=== PATIENT | female | born 1995 | race Caucasian/White ===

== ENCOUNTER 2021-06-01 05:15 | Inpatient (IN) | payer BC ==
[2021-06-01] MEDS ORDERED: Scopolamine 1.5 MG Transdermal Patch TOP SCH (06:00)
[2021-06-01] MEDS ORDERED: Celecoxib 200 MG Cap PO ONE (06:00)
[2021-06-01] MEDS ORDERED: Acetaminophen 500 MG Tab PO ONE (06:00)
[2021-06-01] MEDS ORDERED: cefOXitin 2 GM Vial ONE (06:45)
[2021-06-01] MEDS ORDERED: Dextrose 5%-Lactated Ringers 1,000 ML IV SCH (07:00)
[2021-06-01] MEDS ORDERED: Ondansetron 4 MG/2 ML SDV ONE (07:08)
[2021-06-01] MEDS ORDERED: Succinylcholine 200 MG/10 ML MDV ONE (07:08)
[2021-06-01] MEDS ORDERED: fentaNYL 250 MCG/5 ML SDV ONE ×2 (07:08→07:55)
[2021-06-01] MEDS ORDERED: Neostigmine Methylsulfate 1 MG/ML 5 ML Syringe ONE (07:08)
[2021-06-01] MEDS ORDERED: Propofol 200 MG/20 ML SDV ONE (07:08)
[2021-06-01] MEDS ORDERED: Dexamethasone 4 MG/ML SDV ONE (07:08)
[2021-06-01] MEDS ORDERED: Rocuronium 50 MG/5 ML Vial ONE (07:08)
[2021-06-01] MEDS ORDERED: Glycopyrrolate 0.2 MG/ML 5 ML MDV ONE (07:08)
[2021-06-01] MEDS ORDERED: Lactated Ringers 0 ML ONE (07:12)
[2021-06-01] MEDS ORDERED: cefOXitin 2 GM in Sodium Chloride 0.9% 50 ML IV ONE (07:15)
[2021-06-01] MEDS ORDERED: Ketamine 17 MG in Sodium Chloride 0.9% 19.83 ML IV SCH (07:30)
[2021-06-01] MEDS ORDERED: Ketamine 500 MG/5 ML MDV IV SCH (07:30)
[2021-06-01] MEDS ORDERED: Magnesium Sulfate 3.8 GM in Sodium Chloride 0.9% 100 ML IV SCH (07:30)
[2021-06-01] MEDS ORDERED: Magnesium Sulfate 3.8 GM in Sodium Chloride 0.9% 250 ML IV ONE (07:30)
[2021-06-01] MEDS ORDERED: hydrOXYzine HCL 100 MG/2 ML SDV IM ONE (09:26)
[2021-06-01] MEDS ORDERED: fentaNYL 100 MCG/2 ML SDV IVPUSH ONE (09:38)
[2021-06-01] MEDS ORDERED: Lactated Ringers 1,000 ML ONE (09:52)
[2021-06-01] MEDS ORDERED: Cetirizine 10 MG Tab PO PRN (10:46)
[2021-06-01] MEDS ORDERED: Metoclopramide 10 MG/2 ML SDV IVPUSH PRN (12:00)
[2021-06-01] MEDS ORDERED: Ondansetron 4 MG/2 ML SDV IVPUSH PRN (12:00)
[2021-06-01] MEDS ORDERED: Calcium Gluconate 10% 1 GM/10 ML SDV IVPUSH PRN (12:00)
[2021-06-01] MEDS ORDERED: diphenhydrAMINE 50 MG/ML SDV IVPUSH PRN (12:00)
[2021-06-01] MEDS ORDERED: HYDROmorphone 1 MG/ML Syringe IV PRN (12:00)
[2021-06-01] MEDS ORDERED: Labetalol 20 MG/4 ML Syringe IVPUSH PRN (12:00)
[2021-06-01] MEDS ORDERED: oxyCODONE 5 MG Tab PO PRN (12:00)
[2021-06-01] MEDS ORDERED: HYDROmorphone 0.5 MG/0.5 ML Syringe IVPUSH PRN (12:00)
[2021-06-01] MEDS ORDERED: Acetaminophen 500 MG Tab PO PRN (12:00)
[2021-06-01] MEDS: hydrOXYzine HCL 100 MG/2 ML SDV IM PRN ×2 (12:34→19:56)
[2021-06-01] MEDS: Dextrose 5%-Lactated Ringers 1,000 ML IV SCH ×2 (13:08→23:12)
[2021-06-01] MEDS ORDERED: Pantoprazole 40 MG Vial IVPUSH SCH (14:00)
--- NOTE | 2021-06-01 14:39 | PCM.EKG ---
#1 Interpretation EKG Date: 06/01/21 Time: 07:07 Rhythm: NSR Rate (Beats/Min): 90 [place]: Normal P-Wave: Present QRS: Normal ST-T: Normal QT: Normal CA/PQ Interval: normal Comparison: NA - No Prior EKG
[2021-06-01] MEDS: cefOXitin 2 GM in Sodium Chloride 0.9% 50 ML IV SCH ×2 (15:06→19:58)
[2021-06-01] MEDS: Acetaminophen 500 MG Tab PO SCH ×2 (15:09→22:03)
[2021-06-01] MEDS: busPIRone 5 MG Tab PO SCH ×2 (15:09→21:53)
[2021-06-01] MEDS ORDERED: MVI, Adult with Vitamin K 10 ML, Thiamine 200 MG, Zinc/Copper/Manganese/Selenium 1 ML i... IV SCH ×4 (16:00)
[2021-06-01] MEDS: Heparin Sodium 5,000 Units/ML Vial SUBCUT SCH (17:10)
[2021-06-01] MEDS: Cyclobenzaprine 10 MG Tab PO PRN (18:55)
[2021-06-01] MEDS: lamoTRIgine 100 MG Tab PO SCH (21:53)
[2021-06-01] MEDS: Propranolol 40 MG Tab PO SCH (21:53)
[2021-06-01] MEDS: Oxybutynin 5 MG Tab PO SCH (21:53)
[2021-06-01] MEDS: OLANZapine 5 MG Tab PO SCH (21:53)
[2021-06-01] MEDS: Divalproex Sodium Delayed-Release 250 MG Tab.CR PO SCH (21:53)
[2021-06-01] MEDS: Mirtazapine 15 MG Tab PO SCH (21:53)
[2021-06-01] MEDS: traMADol 50 MG Tab PO PRN (22:04)
[2021-06-02] MEDS: cefOXitin 2 GM in Sodium Chloride 0.9% 50 ML IV SCH ×3 (02:44→14:38)
[2021-06-02] MEDS ORDERED: Iopamidol 612 MG/ML 50 ML SDV PO STA (02:48)
[2021-06-02] MEDS: Cyclobenzaprine 10 MG Tab PO PRN (03:23)
[2021-06-02] MEDS: Dextrose 5%-Lactated Ringers 1,000 ML IV SCH ×2 (05:29→12:17)
[2021-06-02] MEDS: Acetaminophen 500 MG Tab PO SCH ×3 (05:57→22:04)
[2021-06-02] MEDS: Heparin Sodium 5,000 Units/ML Vial SUBCUT SCH ×2 (05:58→18:49)
[2021-06-02] MEDS ORDERED: hydrOXYzine HCl 25 MG Tab PO PRN (07:47)
--- NOTE | 2021-06-02 08:52 | PN ---
DATE OF SERVICE: 06/02/2021 SUBJECTIVE: Luli is postop day #1. Her upper GI was normal. She had 420 mL and output was 1400. FRACISCO drain is 250 mL of light red drainage. Upper GI this morning was normal. She has no questions or concerns. OBJECTIVE: GENERAL: Luli is a pleasant 26-year-old female. She is alert and orientated. VITAL SIGNS: TPR 97.7, 80, and 16. Blood pressure 112/66. HEENT: Negative. NECK: Supple. HEART: Regular rate and rhythm. LUNGS: Clear. ABDOMEN: Dressings dry and intact. FRACISCO drain intact. EXTREMITIES: Without peripheral edema. ASSESSMENT: Diagnostic laparoscopy with: 1. Laparoscopic gastric bypass surgery. 2. Liver biopsy. 3. Repair of diaphragmatic hernia. 4. Partial gastrectomy. POSTOPERATIVE DIAGNOSES: 1. Morbid obesity. 2. Periesophageal diaphragmatic hernia. 3. Hepatomegaly. 4. Overstitch part of devascularization requiring partial pouch resection. Date of procedure: 06/01/2021. Surgeon: Isacc Smith MD. PLAN: 1. Decrease IV to 100 mL per hour. 2. Step 2 gastric bypass diet without cereal. 3. Discontinue continuous pulse ox and wiener packer. 4. Zofran ODT 4 mg q.4 hours p.r.n. nausea sublingual on step 2 gastric bypass diet without cereal. Communication order written to drink 1 med cup every 20 minutes or 3 per hour, record at bedside. 5. Continue ambulation and use of incentive spirometer. 6. We will evaluate p.r.n. or in a.m. Argenis Griffin PA-C /[id number]
--- NOTE | 2021-06-02 09:38 | CR ---
[facility] HISTORY: Postbariatric surgery FINDINGS: Patient swallowed water-soluble contrast. Upright views of the abdomen show no evidence of extravasation or obstruction. There is a surgical drain in the left upper quadrant. IMPRESSION: Status post bariatric surgery No extravasation or obstruction seen
[2021-06-02] MEDS: hydrOXYzine HCL 100 MG/2 ML SDV IM PRN ×2 (10:14→16:28)
[2021-06-02] MEDS: busPIRone 5 MG Tab PO SCH ×3 (10:22→22:00)
[2021-06-02] MEDS: Oxybutynin 5 MG Tab PO SCH ×3 (10:23→21:59)
[2021-06-02] MEDS: Spironolactone 25 MG Tab PO SCH (10:23)
[2021-06-02] MEDS: Propranolol 40 MG Tab PO SCH ×2 (10:24→21:59)
[2021-06-02] MEDS: ClonazePAM 1 MG Tab PO PRN ×2 (10:31→21:59)
[2021-06-02] MEDS: SCOPOLAMINE PATCH CHECK TOP SCH (10:33)
[2021-06-02] MEDS: Celecoxib 200 MG Cap PO SCH ×2 (10:33→21:58)
[2021-06-02] MEDS: traMADol 50 MG Tab PO PRN ×2 (12:13→21:57)
--- NOTE | 2021-06-02 13:13 | OR ---
DATE OF PROCEDURE: 06/01/2021 SURGEON: Isacc Smith MD PREOPERATIVE DIAGNOSIS: Morbid obesity. POSTOPERATIVE DIAGNOSES: 1. Morbid obesity. 2. Marked hepatomegaly. 3. Paraesophageal diaphragmatic hernia. 4. Area of gastric pouch devascularized requiring partial pouch resection. OPERATIVE PROCEDURES: Diagnostic laparoscopy with: 1. Laparoscopic removal Lisette-en-Y gastric bypass with long limb gastroenterostomy (82635). 2. Bill-Cut needle liver biopsy (78709). 3. Repair of paraesophageal diaphragmatic hernia (84975). 4. Partial gastrectomy (49701). ANESTHESIA: General. HELICOPTER SPECIALIST: Argenis Griffin PA-C. INDICATIONS FOR PROCEDURE: This is a 26-year-old female presenting with longstanding morbid obesity and increasingly significant comorbidities. After preoperative evaluation and discussion, she wished to proceed with a gastric bypass procedure. Potential risks including bleeding, infection, leaks from various GI tract closures, problems with bowel obstruction over time, as well as possibility of cardiopulmonary, septic, or hemorrhagic complications leading to were discussed, and the patient wishes to proceed. DESCRIPTION OF PROCEDURE: The patient was taken to the operating room and after general endotracheal anesthesia was induced, she was placed in a lithotomy position and the abdomen was prepped and draped 15 cm inferior and 5 cm left of the xiphoid process. A transverse incision was made and peritoneal cavity entered under direct vision with an Optiview trocar, inflated to 15 mmHg pressure with CO2. Laparoscopy was then reinserted. No underlying trocar insertion site injuries were seen. Following this, 5 additional trocars were placed across the upper and mid abdomen and bilateral transverse abdominis plane blocks were placed. The liver was noted to be markedly fatty infiltrated and enlarged roughly 2-3 times of normal size. Bill-Cut needle biopsy was obtained from left lobe of liver. Minimal bleeding from biopsy sites was controlled with electrocautery. At this point, the omentum was divided midline at the level of the transverse colon. This allowed identification of small bowel at the ligament of Treitz. Small bowel was then traced out 125 cm distal to that point, was divided transversely with a EMELY stapler. Small bowel was then traced out an additional 150 cm, where the [id number] enteroenterostomy was accomplished with internal firing of Endo-EMELY 60 mm stapler. The common opening was then closed transversely with the same stapler. Angles of anastomosis and mesenteric defect approximated with some 0 Ethibond stitch along with 4 mL of fibrin sealant. The divided end of Lisette limb was then from the mesentery for a few centimeters, which allowed an antecolic position of the Lisette limb up to the level of the gastroesophageal junction without tension. The liver was then retracted anteriorly. The patient was noted to have moderate-sized paraesophageal diaphragmatic hernia, contained some perigastric fat along with some gastric fundus and a tongue of omentum. The hernia was reduced at this point and the peritoneum overlying incised and reflected downward and an anterior repair of the diaphragmatic hernia was accomplished with 0 Ethibond sutures reinforced with PTFE pledgets. At this point, the gastrointestinal catheter inflated to 15 cc and pulled up snugly against the EG junction. Gastric wall over the apex balloon was then marked with electrocautery, and the balloon catheter deflated and pulled up into the esophagus. The lesser omental tissue adjacent to the gastric cardia was then incised allowing dissection behind the stomach at that level. Pouch formation was initiated with transverse firing of the EMELY stapler along with 2 additional firings of GI stapler up to and through the angle of His were then undertaken. At that point, the patient was noted to have some upper and left lateral aspect of the gastric pouch which were ischemic and the pouch was then repaired with additional partial gastrectomy, and the remaining staple line and gastric pouch at the point appeared to be well vascularized with good intact staple line. The anvil of a 25 mm EEA stapler was then attached to a [place] sump type tube and brought down through the mouth and taken out through a small opening in the gastric pouch, allowing the anvil likewise to be pulled down to within the gastric pouch. The divided end of Lisette limb was then opened and the main body of the EEA stapler passed several centimeters into the lumen of small bowel, brought up the anvil, united with it, thus creating the gastrojejunostomy. Upon removal of the stapler, double donuts of the mucosa were noted within it. Small bowel was closed off with a vascular staple line. Gastrojejunostomy was reinforced with some 3-0 Vicryl seromuscular stitch along with fibrin sealant. Leak test was accomplished with injection of 120 mL of air in the gastric pouch while it was submerged with cefoxitin-containing saline solution. No leaks were identified. A single Oniel- Miller drain was taken out through the left lateral trocar site and placed adjacent to the gastrojejunostomy, from there up into the splenic fossa. Trocars were then removed and peritoneal cavity deflated. Incisions were closed with 4-0 Vicryl skin stitch and drain affixed with 4-0 Vicryl stitch as well. The patient was taken to the recovery room in satisfactory condition. Physician automotive parts counter assistant, Argenis Griffin, played an essential role in assisting in this case, helping to position the patient, and retract structures as needed as well as suturing, cutting sutures when indicated. Her presence improved patient's safety and decreased operative time. Isacc Smith MD Job #: [id number]
[2021-06-02] MEDS ORDERED: MVI, Adult with Vitamin K 10 ML, Thiamine 200 MG, Zinc/Copper/Manganese/Selenium 1 ML i... IV SCH ×4 (16:00)
[2021-06-02] MEDS ORDERED: Pantoprazole 40 MG Delayed-Release Granules 1 Packet PO SCH (16:30)
[2021-06-02] MEDS: Mirtazapine 15 MG Tab PO SCH (21:58)
[2021-06-02] MEDS: lamoTRIgine 100 MG Tab PO SCH (21:59)
[2021-06-02] MEDS: OLANZapine 5 MG Tab PO SCH (21:59)
[2021-06-02] MEDS: Divalproex Sodium Delayed-Release 250 MG Tab.CR PO SCH (22:01)
[2021-06-02] MEDS: Ondansetron 4 MG Tab.DIS PO PRN (22:32)
[2021-06-03] MEDS: Dextrose 5%-Lactated Ringers 1,000 ML IV SCH (01:24)
[2021-06-03] MEDS: Acetaminophen 500 MG Tab PO SCH (05:29)
[2021-06-03] MEDS: Heparin Sodium 5,000 Units/ML Vial SUBCUT SCH (06:56)
[2021-06-03] MEDS: hydrOXYzine HCL 100 MG/2 ML SDV IM PRN (08:53)
[2021-06-03] MEDS ORDERED: Cyanocobalamin (Vitamin B12) 1,000 MCG/ML SDV IM ONE (09:00)
[2021-06-03] MEDS ORDERED: Magnesium Hydroxide 400 MG/5 ML Susp 30 ML Cup PO PRN (09:05)
[2021-06-03] MEDS: Propranolol 40 MG Tab PO SCH (09:19)
[2021-06-03] MEDS: Oxybutynin 5 MG Tab PO SCH (09:19)
[2021-06-03] MEDS: Spironolactone 25 MG Tab PO SCH (09:19)
[2021-06-03] MEDS: Celecoxib 200 MG Cap PO SCH (09:19)
[2021-06-03] MEDS: busPIRone 5 MG Tab PO SCH (09:19)
[2021-06-03] MEDS: SCOPOLAMINE PATCH CHECK TOP SCH (09:20)
[2021-06-03] MEDS: Ondansetron 4 MG Tab.DIS PO PRN (09:32)
--- NOTE | 2021-06-04 08:16 | DISCH ---
FINAL DIAGNOSES: 1. Morbid obesity. 2. Marked hepatomegaly. 3. Paraesophageal diaphragmatic hernia. 4. Area of stomach pouch devascularized status post pouch formation, requiring additional resection. ADDITIONAL DIAGNOSES: 1. Allergic rhinitis. 2. Anxiety. 3. Bipolar II disorder. 4. Irritable bowel syndrome. 5. Major depression, in partial remission. 6. Weightbearing joint pain. OPERATIVE PROCEDURES: Done on 06/01, diagnostic laparoscopy with: 1. Laparoscopic Lisette-en-Y gastric bypass with long limb gastroenterostomy. 2. Bill-Cut needle liver biopsy. 3. Repair of paraesophageal diaphragmatic hernia. 4. Partial gastrectomy. SUMMARY: This is a 26-year-old female, presenting with longstanding morbid obesity and increasingly significant comorbidities. After preoperative evaluation and discussion, she wished to proceed with a gastric bypass procedure. This was done along with liver biopsy and repair of paraesophageal hernia on the day of admission. She did have an area of ischemia on her gastric pouch after initial formation and this was resected back to probably with good blood supply. Postoperatively, she has had no significant problems. She is presently tolerating a step 2 diet and will be discharged home with appointment with [facility] on 06/12/2021 at 10 a.m. She will be continuing her usual medications other than we will have her stop the omeprazole after she is off the Celebrex. The Depakote ER will be switched to 250 mg 2 tablets at bedtime x10 days to decrease the amount of tablets. Otherwise, she will be on Tylenol 1 g p.o. q.i.d. p.r.n., tramadol 50 mg p.o. q.6 hours p.r.n. pain #18, Celebrex 200 mg p.o. b.i.d. x5 days and then b.i.d. p.r.n. Job #: [id number]
== END 2021-06-03 10:40 | disposition home or self-care (01) | DRG 403 ==
LOC: JP.SDS 05:15 → EDSTATUS 07:15 → JP.MS 09:20
PROVIDERS: ADMIT Surgery; ATTEND Surgery
PROC: 0D164ZA Bypass Stomach to Jejunum, Percutaneous Endoscopic Approach (ICD-10-PCS; principal; 2021-06-01)
PROC: 0FB24ZX Excision of Left Lobe Liver, Percutaneous Endoscopic Approach, Diagnostic (ICD-10-PCS; 2021-06-01)
PROC: 0BQT4ZZ Repair Diaphragm, Percutaneous Endoscopic Approach (ICD-10-PCS; 2021-06-01)
PROC: 0DB64ZZ Excision of Stomach, Percutaneous Endoscopic Approach (ICD-10-PCS; 2021-06-01)
DX: E66.01 Morbid (severe) obesity due to excess calories (principal); R16.0 Hepatomegaly, not elsewhere classified; K44.9 Diaphragmatic hernia without obstruction or gangrene; J30.9 Allergic rhinitis, unspecified; F41.9 Anxiety disorder, unspecified; F32.4 Major depressive disorder, single episode, in partial remission; M25.50 Pain in unspecified joint; G47.00 Insomnia, unspecified; E66.9 Obesity, unspecified; H52.10 Myopia, unspecified eye; Z79.899 Other long term (current) drug therapy; Z68.41 Body mass index [BMI] 40.0-44.9, adult
CPT/HCPCS: 36415; 74240; 74240-26; 81025; 83735; 84100; 86850; 86900; 86901; 93005; 94762; A9270-GY; C9113; J0171; J0330; J0694; J1100; J1644; J2405; J2704; J2710; J2795; J3010; J3410; J3411; J3420; J3475; J3490; J7050; J7120; J7121; Q9967

== ENCOUNTER 2025-01-07 08:32 | Day surgery (SDC) | payer BC ==
[~2025-01-07 08:32] MED LIST: Midazolam 1 MG/ML 2 ML SDV ONE; Propofol 200 MG/20 ML SDV ONE; fentaNYL 50 MCG/ML SDV ONE
[2025-01-07] MEDS: Lactated Ringers 1,000 ML IV SCH (09:30)
== END 2025-01-07 10:44 | disposition home or self-care (01) ==
LOC: JP.SDS 08:32
PROVIDERS: ATTEND Surgery
DX: K25.9 Gastric ulcer, unspecified as acute or chronic, without hemorrhage or perforation (principal)
CPT/HCPCS: 00731-QZ; 81025; 88305; J2250; J2704; J3010; J7120